=== PATIENT | male | born 1990 ===

== ENCOUNTER 2016-08-14 18:04 | Emergency (ER) | payer SELFPAY ==
--- NOTE | 2016-08-14 18:25 | UC ---
Upper Extremity HPI - HPI Summary HPI Summary: complaint of left arm pain , shoulder , wrist pain was walking up the ladder, foot slipped and then his arm got stuck in the ladder and friend had to get him out of ladder can't lift or suppinate his arm at this time pain is in the elbow and radiated into his forearm pain in left shoulder and laceration above his fleft clavicle hasn't taken anything for pain - History of Current Complaint Stated Complaint: LEFTR ARM INJURY Time Seen by Provider: 08/14/16 18:20 Hx Obtained From: Patient - Allergies/Home Medications Allergies/Adverse Reactions: Allergies Allergy/AdvReac Type Severity Reaction Status Date / Time Acetaminophen Allergy Vomiting Verified 08/14/16 18:34 Bupropion [From Wellbutrin] Allergy Agitation Verified 08/14/16 18:34 Home Medications: Home Medications Sertraline* [Zoloft*] 50 mg PO DAILY 08/14/16 [History Confirmed 08/14/16] PMH/Surg Hx/FS Hx/Imm Hx Previously Healthy: Yes - Family History Known Family History: Negative: Cardiac Disease, Hypertension, Diabetes - Social History Occupation: Employed Full-time Lives: With Family Smoking Status (MU): Current Every Day Smoker Type: Cigarettes Cessation Counseling: Patient Advised to Stop Review of Systems Constitutional: Negative Skin: Other - laceration Eyes: Negative ENT: Negative Respiratory: Negative Cardiovascular: Negative Gastrointestinal: Negative Genitourinary: Negative Motor: Negative Neurovascular: Negative Musculoskeletal: Other: - left elbow, left shouder pain left wrist pain Neurological: Negative Psychological: Negative All Other Systems Reviewed And Are Negative: Yes Physical Exam Triage Information Reviewed: Yes Appearance: Well-Nourished, Pain Distress Vital Signs Reviewed: Yes Eyes: Positive: Conjunctiva Clear ENT Exam: Normal Neck: Positive: No Lymphadenopathy Respiratory: Positive: Lungs clear, Normal breath sounds, No respiratory distress, No accessory muscle use Cardiovascular: Positive: RRR, No Murmur, Pulses Normal Abdomen Description: Positive: Nontender, Soft Bowel Sounds: Positive: Present Musculoskeletal: Positive: Other: - LUE- tenderness and edema throughout elbow- unable to move his arm able to move his fingers, point tenderness over wrist, no snuff box tenderness, no metacarpal tenderness left shoulder scapula tenderness,unable to move arm d/t pain, no clavicle tenderness, pain over AC joint Neurological: Positive: Other: Psychological Exam: Normal Skin: Positive: Other - laceration 3cm above clavicle Upper Extremity Course/Dx - Course Course Of Treatment: exam completed. d/t amount of trauma and need for pain control will send to higher level of care. - Differential Dx/Diagnosis Differential Diagnosis/HQI/PQRI: Contusion, Fracture (Closed), Strain, Sprain Provider Diagnoses: trauma- LUE- shoulder arm wrist pain - Physician Notification/Consults Time Discussed With Above Provider: 18:45 - Roselyn Valdez [employer] Discharge - Discharge Plan Condition: Stable Disposition: AGAINST MEDICAL ADVICE
[2016-08-14 18:40] VITALS: BP 145/88
== END 2016-08-14 19:02 | disposition left against medical advice (07) ==
LOC: UCCORT 18:04
DX: S41.012A Laceration without foreign body of left shoulder, initial encounter (principal); M25.512 Pain in left shoulder; M25.532 Pain in left wrist; W23.1XXA Caught, crushed, jammed, or pinched between stationary objects, initial encounter; Y93.9 Activity, unspecified
CPT/HCPCS: 99202; G0463